=== PATIENT | female | born 1990 | race Two or more races ===

== ENCOUNTER 2017-12-04 08:22 | Inpatient (IN) | payer OTHER ==
[~2017-12-04] VITALS: Ht 152.4 cm; Wt 2.7 kg
[~2017-12-04 08:22] MED LIST: NAPR500T14 PO; PRENATE ADVANCE PO
[2017-12-04] MEDS ORDERED: PRENATAL TABLE1 EAC2 PO (09:29)
[2017-12-06] MEDS ORDERED: NAPR500T14 PO (08:32)
[2017-12-06] MEDS ORDERED: PREPLUS CA-FE1 EACH PO (08:32)
== END 2017-12-06 10:43 | DRG 766 ==
LOC: LDR 08:22 → OB/GYN 13:08
PROVIDERS: Specialist
PROC: 0UT70ZZ Resection of Bilateral Fallopian Tubes, Open Approach (ICD-10-PCS; 2017-12-04)
PROC: 4A1HXCZ Monitoring of Products of Conception, Cardiac Rate, External Approach (ICD-10-PCS; 2017-12-04)
PROC: 10D00Z1 Extraction of Products of Conception, Low, Open Approach (ICD-10-PCS; principal; 2017-12-04 10:00)
DX: O34.211 Maternal care for low transverse scar from previous cesarean delivery (principal); Z3A.37 37 weeks gestation of pregnancy; Z37.0 Single live birth; Z30.2 Encounter for sterilization; Z64.1 Problems related to multiparity